=== PATIENT | female | born 1975 | race Caucasian/White ===

== ENCOUNTER 2022-09-10 15:32 | Outpatient (CLI) | payer BC, SELFPAY ==
--- NOTE | 2022-09-10 15:40 | CRLHL7_ITS ---
For Patients: As a result of the Century Cures Act, medical imaging exams and procedure reports are released immediately into your electronic medical record. You may view this report before your referring provider. If you have questions, please contact your health care provider. BILATERAL SCREENING MAMMOGRAM WITH COMPUTER-AIDED DETECTION AND TOMOSYNTHESIS TECHNIQUE: CC and MLO views were obtained. These mammographic images have been obtained using full-field digital technique. These mammographic images were interpreted with the benefit of computer-aided detection. Breast Tomosynthesis was used in this interpretation. COMPARISON FILM: 08/28/21, 07/23/20, 05/03/19. FINDINGS: The breasts are heterogeneously dense, which may obscure small masses IMPRESSION: There is no radiographic evidence for malignancy. ASSESSMENT: BI-RADS Category 1: Negative RECOMMENDATION: Routine screening mammogram in 1 year. A lay language report of this examination will be provided to the patient. Antoine Peraza M.D. Diagnostic Radiologist [email or web address] JUSTINA/Dictated by: Antoine Peraza MD @ 09/11/2022 11:04:00 AM (Electronically Signed)
== END 2022-09-10 15:33 | disposition home or self-care (01) ==
LOC: MAMMO 15:33
PROVIDERS: PCP Family Medicine; Visit Provider Family Medicine
DX: Z12.31 Encounter for screening mammogram for malignant neoplasm of breast (principal); R92.2 Inconclusive mammogram
CPT/HCPCS: 77063; 77067

== ENCOUNTER 2023-05-06 09:09 | Outpatient (CLI) | payer BC, SELFPAY | END 2023-05-06 09:10 | disposition home or self-care (01) | LOC: NFLDREF 05-08 12:26 | PROVIDERS: PCP Family Medicine; Referring Provider Family Medicine; Visit Provider Family Medicine | DX: Z00.00 Encounter for general adult medical examination without abnormal findings (principal); E78.00 Pure hypercholesterolemia, unspecified; I10 Essential (primary) hypertension | CPT/HCPCS: 80053; 80061 ==

== ENCOUNTER 2023-09-20 15:17 | Outpatient (CLI) | payer BC, SELFPAY ==
--- NOTE | 2023-09-20 15:20 | CRLHL7_ITS ---
For Patients: As a result of the Century Cures Act, medical imaging exams and procedure reports are released immediately into your electronic medical record. You may view this report before your referring provider. If you have questions, please contact your health care provider. BILATERAL SCREENING MAMMOGRAM WITH COMPUTER-AIDED DETECTION AND TOMOSYNTHESIS TECHNIQUE: CC and MLO views were obtained. These mammographic images have been obtained using full-field digital technique. These mammographic images were interpreted with the benefit of computer-aided detection. Breast Tomosynthesis was used in this interpretation. COMPARISON FILM: 09/10/22, 08/28/21, 07/23/20. FINDINGS: The breasts are heterogeneously dense, which may obscure small masses IMPRESSION: There is no radiographic evidence for malignancy. ASSESSMENT: BI-RADS Category 1: Negative RECOMMENDATION: Routine screening mammogram in 1 year. A lay language report of this examination will be provided to the patient. Darryl Stoll M.D. Diagnostic/Nuclear Medicine Radiologist [email or web address] JUSTINA/Dictated by: Darryl Stoll MD @ 09/21/2023 9:09:00 AM (Electronically Signed)
--- OUTSIDE RECORDS SUMMARY | 2023-09-20 15:21 | XMS_ITS | Continuity of Care Document ---
Author Name Unknown Organization [facility] Address [address] [place] [address] [address] Insurance Providers Payer Plan Claims Address Claims Phone Policy Number Group Number Relation Employer Guarantor Name Guarantor Guarantor Address Guarantor Phone [employer] [address], [place] [address] 81 [phone] Self Minerva Rich 1975 [id number] [place], [place] [id number] [employer] BL[employer] CROSS [address], [place] [address] 81 [phone] Self Minerva Rich 1975 [id number] [place], [place] [id number] [place] [id number] 1 Self Minerva Rich 1975 [id number] [place], [place] [id number] Problems Condition ICD9 code ICD10 code SNOMED code Start Date End Date S tatus Encounter for screening mammogram for malignant neoplasm of breast Z12.31 Admitting Results No Results Allergies, adverse reactions, alerts No known allergies and adverse reactions Medications No administered medications reported Vital Signs No vital signs reported Social History No smoking Hx information available
--- OUTSIDE RECORDS SUMMARY | 2023-09-20 15:21 | XMS_ITS | Clinical Summary ---
Author Name Unknown Organization [facility] Address [place], [place] [address] Care Team Providers Care Visual Effects Artist Name Role Phone Gianni Castañeda MD Primary Care Provider [phone] Allergies Active Allergy Reactions Criticality Noted Date Comments Prednisone Rash Medium 07/03/2018 Medications Medication Sig Dispensed Refills Start Date End Date Status buPROPion (WELLBUTRIN XL) 150 mg Extended-Release tablet Take 150 mg by mouth once daily. 1 10/21/2018 Active busPIRone (BUSPAR) 10 mg tablet Take 10 mg by mouth 3 times daily. 0 04/17/2019 Active hydroCHLOROthiazide 12.5 mg capsule Take 12.5 mg by mouth once daily. 0 05/10/2019 Active topiramate (TOPAMAX) 25 mg tablet 0 11/14/2019 Active rizatriptan (MAXALT) 5 mg tablet 0 09/08/2019 Active propranolol ER (INDERAL LA) 80 mg Cs24 Sustained-Release capsule 0 12/11/2019 Active acetaminophen-caffeine- butalbital (FIORICET) 325-40-50 mg tablet 0 11/11/2019 Activ e Family History Medical History Relation Name Comments Heart Disease Father Hyperlipidemia Father Hypertension Father Stroke Maternal Grandmother Thyroid Disease Sister 2 Psychiatric illness Sister 3 Relation Name Status Comments Brother Alive Father Alive Maternal Grandfather Maternal Grandmother Mother Alive Other Alive great grandmoth er on dad's side Paternal Grandfather Paternal Grandmother Alive Sister 1 Alive Sister 2 Sister 3 Social History Tobacco Use Types Packs/Day Years Used Date Smoking Tobacco: Never Smokeless Tobacco: Never Alcohol Use Standard Drinks/Week Comments Yes 0 (1 standard drink = 0.6 oz pur e alcohol) Social Connections Answer Date Recorded Frequency of Communication with Friends and Fami ly Not on file 11/28/2021 Sex and Gender Information Value Date Recorded Sex Assigned at Not on file Gender Identity Not on file Sexual Orientation Not on file Obstetrics History Para Term AB IAB SAB Ectopic Multiple Livin g Live Births 4 2 2 2 2 Date Outcome GA Total Labor Labor/2nd/3rd Weight Sex Delivery Anes PTL Vivian A1 A5 Name Cl in Term Term 10/15 40w 0d 36h 00m/ 3.49 kg (7 lb 11 oz) M Jacinda ng 10/23 39w 0d 4.22 kg (9 lb 5 oz) F Jacinda ng Last Filed Vital Signs Vital Sign Reading Time Taken Comments Blood Pressure 121/81 11/28/2021 2:42 PM CDT Pulse 73 11/28/2021 2:42 PM CDT Temperature 36.1 ??C (97 ??F) 12/23/2019 5:05 PM CDT Respiratory Rate 14 11/28/2021 2:42 PM CDT Oxygen Saturation 98% 12/23/2019 5:05 PM CDT Inhaled Oxygen Concentration - - Weight 103.9 kg (229 lb) 11/28/2021 2:42 PM CDT Height 157.5 cm (5' 2) 12/23/2019 5:05 PM CDT Body Mass Index 41.88 12/23/2019 5:05 PM CDT Plan of Treatment Health Maintenance Due Date Last Done Comments Tdap 12/17/1986 Depression screening for age 12+ 1987 HIV for age 15-65 12/17/1990 BMI (ht and wt on same day) for age 18+ 12/17/1993 Hepatitis C screening for age 18-79 12/17/1993 Tetanus booster 1995 Colonoscopy through age 75 12/17/2020 Lipids for age 45-75 12/17/2020 Mammogram for age 45-75 12/17/2020 COVID-19 vaccine series (2022- season) 2023 07/30/2021, 12/28/2020, 12/07/2020 Influenza for age 9-49 05/14/2023 Pap test for age 21-65 11/27/2024 2, 11/27/2021, 01/07/2018, Additional history exists Pneumococcal series for age 6-64 Aged Out No longer eligible based on patient's age to complete this topic Care Teams Visual Effects Artist Relationship Specialty Start Date End Date Gianni Castañeda MD [address] [place] [address] PCP - General Family Practice 12/23/19
== END 2023-09-20 15:18 | disposition home or self-care (01) ==
LOC: MAMMO 15:19
PROVIDERS: PCP Family Medicine; Visit Provider Family Medicine
DX: Z12.31 Encounter for screening mammogram for malignant neoplasm of breast (principal); R92.2 Inconclusive mammogram
CPT/HCPCS: 77063; 77067

== ENCOUNTER 2024-05-01 08:04 | Outpatient (CLI) | payer BC, SELFPAY ==
--- OUTSIDE RECORDS SUMMARY | 2024-05-02 08:34 | XMS_ITS | Encounter Summary ---
Author Organization [employer] Address [address], [place] [address] Care Team Providers Care Tire Shop Manager Name Role Phone Darryl Alberto MD Primary Care Provider [phone] Reason for Visit * Reason Comments QUESTIONS, GENERAL Entered automaticall y based on patient selection in [email or web address]. Encounter Details Date Type Department Care Team (Late st Contact Info) Description 04/22/2024 10:25 AM CDT E-Visit [facility] [address] [place] [address] Leeanna Haney, ESTUARDO, PUBLIC HEALTH REGISTRAR [address] [place] [address] Chief Comp: QUESTIONS, GENERAL Social History Tobacco Use Types Packs/Day Years Used Date Smoking Tobacco: Never Sex and Gender Information Value Date Recorded Sex Assigned at Not on file Gender Identity Not on file Sexual Orientation Not on file documented as of this encounter Nursing Notes * Colette Tsai RN - 04/28/2024 1:01 PM CDT Attempted to call pt regarding pain and injection order. No answer. Left message for patient to call back. Call Center: Please route encounter back to triage pool * Colette Tsai RN - 04/26/2024 10:44 AM CDT Images from the original note were not included. Leeanna Haney APRN, PUBLIC HEALTH REGISTRAR You (10:19 AM) Ok to repeat same injection if same pain pattern. You Leeanna Haney APRN, CNP2 days ago Okay for repeat injection? Left message for patient to call back. Also sent message to [employer] requesting patient return call. Call Center: Please route encounter back to triage pool documented in this encounter Plan of Treatment Not on file documented as of this encounter Visit Diagnoses Not on filedocumented in this encounter Care Teams Tire Shop Manager Relationship Specialty Start Date End Date Darryl Alberto MD [address] [place] [address] PCP - General 12/14/10 documented as of this encounter
--- OUTSIDE RECORDS SUMMARY | 2024-05-02 08:34 | XMS_ITS | Encounter Summary ---
Author Organization [employer] Address [address] [address] Care Team Providers Care Gaming Pit Boss Name Role Phone Darryl Alberto MD Primary Care Provider [phone] Reason for Referral * Procedure/Equipment (Routine) - Pending Review Specialty Diagnoses / Procedures Referred By Contac t Referred To Contact Diagnoses Lumbar radiculopathy Lumbar pain DDD (degenerative disc disease), lumbar (HRC) Scoliosis of lumbar spine, unspecified scoliosis type Lumbar foraminal stenosis Procedures FL Spinal Injection For Pain Management Leeanna May APRN, CNP [address] [place] [address] Referral ID Status Reason Start Date Expiration Date V isits Requested Visits Authorized [id number] Pending Review 04/26/2024 07/26/2025 1 1 Reason for Visit * Reason Comments Phone Call From Patient Encounter Details Date Type Department Care Team (Late st Contact Info) Description 04/26/2024 Refill [facility] [place] [facility] [address] [place] [address] Leeanna May APRN, CNP [address] [place] [address] Phone Call From Patient Social History Tobacco Use Types Packs/Day Years Used Date Smoking Tobacco: Never Sex and Gender Information Value Date Recorded Sex Assigned at Not on file Gender Identity Not on file Sexual Orientation Not on file documented as of this encounter Progress Notes * Leeanna May APRN, CNP - 04/28/2024 2:40 PM CDTAddended by: LEEANNA MAY on: 04/28/2024 02:40 PM Modules accepted: Orders * Colette Leary RN - 04/28/2024 2:09 PM CDTAddended by: COLETTE LEARY on: 04/28/2024 02:09 PM Modules accepted: Orders documented in this encounter Nursing Notes * Colette Leary RN - 04/28/2024 3:31 PM CDT Pt called and notified RX requests signed per provider. No further questions or concerns at this time. * Colette Leary RN - 04/28/2024 1:50 PM CDT Action: Input needed and New order Next Step: Review associated dx/order for accuracy and sign pended orders, if appropriate. and Caller IS expecting a call back from care team. Specific Request(s): 1. Pt requesting refill of cyclobenzaprine. Order pended. 2. Pt requesting refill of diclofenac. Order pended. Spoke w/ pt regarding injection. No further questions regarding scheduling, however has questions regarding refill request. Pt states she has had good relief with diclofenac and cyclobenzaprine prn and is requesting a refill of these medications. Diclofenac was originally prescribed by [facility] provider. Sales Representative Cash Registers informed would send message to provider regarding request. Pt verbalized understanding and agreement with plan. * Hyun Avila - 04/28/2024 1:09 PM CDT Pt. Missed a call from the care team today. No message was left why would like to speak with care team. * Jennifer Mccracken - 04/26/2024 1:18 PM CDT Spoke with the pt and she confirms that her pain is the same type/location as before. She would like to have another injection. Orders were entered and she will be called to schedule. She is aware that it might take up to 10 days for the PA process, before it's scheduled. She was given the injection coordinator/scheduling number to call if it is longer. She agrees to f/u with Leeanna 2-3 wks post injection. * Chanel Cespedes - 04/26/2024 10:53 AM CDT Patient states she received a call from [facility] ortho today. There are no notes. documented in this encounter Plan of Treatment Scheduled Orders Name Type Priority Associated Diagnoses Orde r Schedule FL Spinal Injection For Pain Management Imaging New Routine Lumbar radiculopathy Lumbar pain DDD (degenerative disc disease), lumbar (HRC) Scoliosis of lumbar spine, unspecified scoliosis type Lumbar foraminal stenosis Expected: 04/26/2024 (Approximate), Expires: 04/26/2025 documented as of this encounter Visit Diagnoses Diagnosis Lumbar radiculopathy- Primary Thoracic or lumbosacral neuritis or radiculitis, unspecified Lumbar pain Lumbago DDD (degenerative disc disease), lumbar (HRC) Degeneration of lumbar or lumbosacral intervertebral disc Scoliosis of lumbar spine, unspecified scoliosis type Lumbar foraminal stenosis Spinal stenosis, lumbar region, without neurogenic claudication documented in this encounter Care Teams Gaming Pit Boss Relationship Specialty Start Date End Date Darryl Alberto MD [address] [place] [address] PCP - General 12/14/10 documented as of this encounter
--- OUTSIDE RECORDS SUMMARY | 2024-05-02 08:34 | XMS_ITS | Continuity of Care Document ---
Author Organization [address], [place] [address] Insurance Providers Payer Plan Claims Address Claims Phone Policy Number Group Number Relation Employer Guarantor Name Guarantor Guarantor Address Guarantor Phone [employer] BL[employer] CROSS [address], [place] [address] 81 [phone] Self Minerva Rich 1975 [id number] [place], [place] [id number] [employer] CROSS [address], [place] [address] 81 81 Self Minerva Rich 1975 [id number] [place], [place] [id number] [place] [address] [place] 220G [id number] 1 Self Minerva Rich 1975 [address] [place], [place] [id number] Problems Condition ICD9 code ICD10 code SNOMED code Start Date End Date S tatus Encounter for screening mammogram for malignant neoplasm of breast Z12.31 Admitting Encounter for screening mammogram for malignant neoplasm of breast Z12.31 Final Insomnia, unspecified G47.00 Fi nal Obesity, unspecified E66.9 Fin al Depression, unspecified F32.A Final Essential (primary) hypertension I10 Final Other mcfp (current) drug therapy Z79.899 Fi nal Encounter for general adult medical examination without abnormal findings Z00.00 Final Other local company intermodal truck driver (current) drug therapy Z79.899 Fi nal Essential (primary) hypertension I10 Final Encounter for general adult medical examination without abnormal findings Z00.00 Final Pure hypercholesterolemia, unspecified E78.00 Final Other mcfp (current) drug therapy Z79.899 Ad mitting Essential (primary) hypertension I10 Admitting Encounter for general adult medical examination without abnormal findings Z00.00 Admitti ng Pure hypercholesterolemia, unspecified E78.00 Admitting Results No Results Allergies, adverse reactions, alerts No known allergies and adverse reactions Medications No administered medications reported Vital Signs No vital signs reported Social History No smoking Hx information available
--- OUTSIDE RECORDS SUMMARY | 2024-05-02 08:34 | XMS_ITS | Clinical Summary ---
Author Organization [facility] Address [address], [place] [address] Care Team Providers Care Supervisor Grain And Yeast Plants Name Role Phone Darryl Alberto MD Primary Care Provider [phone] Source Comments You are receiving this document as you are listed as the primary care provider,follow-up provider, or the patient has been referred to you for consultation.This is in compliance with the Medicare andThe [facility] EHR Incentive Program,which states Providers who transition their patient to another setting of careor provider of care or refers their patient to another provider of care shouldprovide summary care record for each transition of care or referral. [facility] Allergies Active Allergy Reactions Criticality Noted Date Comments Prednisone Respiratory Distress High 09/23/2023 Medications Medication Sig Dispensed Refills Start Date End Date Status ibuprofen (AKA MOTRIN) 600 MG tablet Take 1 Tablet (600 mg) by mouth three times a day as needed (Take 1 tablet by mouth 3 times daily as needed.). 09/22/2007 Active ALPRAZolam (XANAX) 0.25 MG tablet Take 1 Tablet (0.25 mg) by mouth three times a day as needed. Active buPROPion (WELLBUTRIN XL) 150 MG 24 hour release tablet Take 1 Tablet (150 mg) by mouth every morning. 10/26/2023 Active buPROPion (WELLBUTRIN XL) 300 MG 24 hour release tablet Take 1 Tablet (300 mg) by mouth daily. 12/02/2021 Active busPIRone (BUSPAR) 30 MG tablet Take 0.5 Tablets (15 mg) by mouth two times a day. Active NIKUNJ 50-325-40 MG tablet Take 1 Tablet by mouth every 6 hours as needed. 08/12/2023 Active Phentermine HCl (ADIPEX-P) 37.5 MG tablet Take 1 Tablet (37.5 mg) by mouth every morning. 09/14/2023 Active propranolol (INDERALLA) 80 MG 24 hour release capsule Take 1 Capsule (80 mg) by mouth daily. 08/06/2023 Active hydroCHLOROthiazi de (ORETIC) 12.5 MG tablet Take 1 Tablet (12.5 mg) by mouth daily. Active celecoxib (CELEBREX) 200 MG capsule Take 1 Capsule (200 mg) by mouth two times a day. 60 Capsule 12/03/2023 Active cyclobenzaprine (FLEXERIL) 10 MG tablet Take 1 Tablet (10 mg) by mouth at bedtime as needed for Muscle Spasms. 30 Tablet 04/28/2024 Active diclofenac (VOLTAREN) 50 MG enteric coated tablet Take 1 Tablet (50 mg) by mouth two times a day. 60 Tablet 04/28/2024 Active cyclobenzaprine (FLEXERIL) 10 MG tablet Take 1 Tablet (10 mg) by mouth at bedtime as needed for Muscle Spasms. 30 Tablet 12/03/2023 04/28/2024 Discontinued (*Med change OR same med OR reorder, new dose/directi ons) Active Problems Problem Noted Date Diagnosed Date Routine follow-up 12/07/2005 Overview (05/05/2017): LW Onset: ; Exam Contraceptive management 12/07/2005 Overview (05/05/2017): LW Onset: [id number] ; Contraceptive Management NOS Resolved Problems Problem Noted Date Diagnosed Date Resolved Date Routine general medical exam ination at a health care facility 09/29/2004 04/18/2005 Overview (05/05/2017): LW Onset: ; Health Maintenance Encounters Date Type Department Care Team Description 04/26/2024 Refill [facility] [address] [place] [phone] Leeanna Haney, EXTENSION SPECIALIST, STEAMBLASTER Phone Call From Patient 04/22/2024 10:25 AM CDT [facility] [address] [place] [address] Leeanna Haney, EXTENSION SPECIALIST, STEAMBLASTER Chief Comp: QUESTIONS, GENERAL from Last 3 Months Immunizations Name Administration Dates Next Due Flu Vac Preserv Free (3+yrs) 07/09/2005 TDAP (ADACEL) 03/18/2007 Td 09/02/1999 Social History Tobacco Use Types Packs/Day Years Used Date Smoking Tobacco: Never Sex and Gender Information Value Date Recorded Sex Assigned at Not on file Gender Identity Not on file Sexual Orientation Not on file Last Filed Vital Signs Vital Sign Reading Time Taken Comments Blood Pressure 113/87 12/20/2023 7:43 AM CDT Pulse 72 12/20/2023 7:43 AM CDT Temperature 36.4 ??C (97.6 ??F) 09/23/2023 3:24 PM CS T Respiratory Rate 16 12/20/2023 7:43 AM CDT Oxygen Saturation - - Inhaled Oxygen Concentration - - Weight 97 kg (213 lb 12.8 oz) 09/23/2023 3:24 PM MANAGEMENT RETAIL INTERN Height 160 cm (5' 3) 09/23/2023 3:24 PM MANAGEMENT RETAIL INTERN Body Mass Index 37.87 09/23/2023 3:24 PM MANAGEMENT RETAIL INTERN Plan of Treatment Health Maintenance Due Date Last Done Comments Colon Cancer Screening Plan Due 1975 Hep C Screening (Preventive Services) 1975 Mammogram 1975 Adult Preventive Visit 12/17/1993 HepB (1) 12/17/1994 Cervical Cancer Screening Due 12/08/2005 12/07/2005, 10/15/2004, 03/22/2002, Additional history exists Diabetes Screening- (based on age and BMI) 03/18/2010 03/18/2007 Cholesterol 12/17/2020 03/18/2007, 10/07/2004 COVID-19 Vaccine ( season) 2023 06/12/2022, 07/30/2021, 12/28/2020, Additional history exists Influenza (#1) 2024 09/26/2023, 05/16, 07/01/2021, Additional history exists Zoster/Shingles (1 of 2) 12/17/2025 DTaP/Tdap/Td (5 - Tdap) 11/22/2031 11/22/19, 04/20/2012, 04/03/2007, Additional history exists HIV Screening (Preventive Services) Completed 03/24/2005, 03/22/2002 HepA Aged Out 11/23/2012, 04/20/2012 No lo nger eligible based on patient's age to complete this topic Hib Aged Out No longer eligi ble based on patient's age to complete this topic IPV (Polio) Aged Out No longer eligi ble based on patient's age to complete this topic MCV4 Aged Out No longer eligi ble based on patient's age to complete this topic Pneumococcal Aged Out No longer eligi ble based on patient's age to complete this topic Procedures Procedure Name Priority Date/Time Associated Diagnosis Comments HGB A1C Routine 03/18/2007 10:30 AM CDT LIPID PANEL & DIRECT LDL (IF NEEDED) Routine 03/18/2007 10:30 AM CDT ANATOMICAL PATH LIQUID BASED Routine 12/07/2005 6:55 AM MANAGEMENT RETAIL INTERN HIV ANTIBODY Routine 03/24/2005 3:11 PM CDT from Last 3 Months or Most Recently Relevant to Health Maintenance Results * (ABNORMAL) Lipid Panel and Direct LDL(If Needed) (03/18/2007 10:30 AM CDT) Hours Fasting 12.0 Hours HP CONVERSION Cholesterol/HDL Ratio Screen 5.5 No normal range HP CONVERSION Cholesterol 171 <200 mg/dL HP CONVERSION HDL Cholesterol 31(L) 40 - 60 mg/dL HP CONVERSION Triglycerides 277(H) 0 - 149 mg/dL HP CONVERSION LDL Calculated 85 0 - 130 mg/dL HP CONVERSION Comment: 03/18/2007 10:3 0 AM CDT Darryl Alberto MD LAB_1 HP CONVERSION * Hgb A1c (03/18/2007 10:30 AM CDT) [facility] HGB A1C 5.0 <6.0 % HP CONVERSION 03/18/2007 10:3 0 AM CDT Darryl Alberto MD LAB_1 Performing Organization Address [facility]/ZIP Co de Phone Number HP CONVERSION * Pap Smear (12/07/2005 6:55 AM MANAGEMENT RETAIL INTERN) [facility] PAP Smear Liquid Based SEE TEXT No normal range HP CONVERSION Comment: Patient: MINERVA BOLANOS ? CERVICAL CYTOLOGY REPORT Pathology # ??[id number] ?Date Obtained: ? Date Received: CYTOLOGIC IMPRESSION: Negative for intraepithelial lesion or malignancy. ? ADDITIONAL DATA LMP: ?01-22-05 CLINICAL HIST ? PP 6 WKS LIQUID BASED PAP CERVICAL SPECIMEN ADEQUACY: ?? Satisfactory. ENDOCERVICAL CELLS: ??Absent. Verified 12/09/05 by: ??KGM ?(electronic signature) 12/07/2005 6:55 AM MANAGEMENT RETAIL INTERN Marcus Lopes MD LAB_1 Performing Organization Address [facility]/ZIP Co de Phone Number HP CONVERSION * HIV Antibody (03/24/2005 3:11 PM CDT) HIV 1/HIV 2 Non Reac Non Reac HP CONVERSION 03/24/2005 3:11 PM CDT Lisa Worley APRN, [facility] LAB_1 HP CONVERSION from Last 3 Months or Most Recently Relevant to Health Maintenance Care Teams Supervisor Grain And Yeast Plants Relationship Specialty Start Date End Date Darryl Alberto MD [address] [place] [address] PCP - General 12/14/10
--- OUTSIDE RECORDS SUMMARY | 2024-05-02 08:34 | XMS_ITS | Clinical Summary ---
Author Organization [facility] Address [place], [place] [address] Care Team Providers Care Inventory Control Assistant Name Role Phone Gianni Castañeda MD Primary Care Provider [phone] Allergies Active Allergy Reactions Criticality Noted Date [...] 05/10/2019 Active topiramate (TOPAMAX) 25 mg tablet 11/14/2019 Active rizatriptan (MAXALT) 5 mg tablet 09/08/2019 Active propranolol ER (INDERAL LA) 80 mg Cs24 Sustained-Release capsule 12/11/2019 Active acetaminophen-caffeine- butalbital (FIORICET) 325-40-50 mg tablet 11/11/2019 Activ e Family History Medical History [...] Outcome GA Total Labor Labor/2nd/3rd Weight Sex Type Anes PTL Vivian A1 A5 Name Clin Term Term 2002 40w 0d 36h 00m/ 3.49 kg (7 lb 11 oz) M C-Sec tion Living 2005 39w 0d 4.22 kg (9 lb 5 oz) F C-Sec tion Living Last Filed Vital Signs Vital Sign Reading [...] 07/30/2021, 12/28/2020, 12/07/2020 Influenza for age 9-49 05/14/2024 Pap test for age 21-65 11/27/2024 2, 11/27/2021, 01/07/2018, Additional history exists Pneumococcal series for age 6-64 Aged Out No longer eligible based on patient's age to complete this topic Procedures Procedure Name Priority Date/Time Associated Diagnosis Comments HPV THIN PREP Routine 11/27/2021 1:30 PM CDT from Last 3 Months or Most Recently Relevant to Health Maintenance Results * HPV HIGH RISK (11/27/2021 1:30 PM CDT) TYPE 16 Negative Negative 12/02/2021 2:52 PM CDT [facility] TYPE 18 Negative Negative 12/02/2021 2:52 PM CDT [facility] OTHER HIGH RISK TYPES Negative Negative 12/02/2021 2:52 PM CDT [facility] Other (Cervical/Vagina l) 11/27/2021 1:30 PM CDT 12/01/2021 7:53 AM CDT Narrative [facility] - 12/02/2021 2:52 PM CDT HPV types 16, 18, 31, 33, 35, 39, 45, 51, 52, 56, 58, 59, 66 and 68 DNA were undetectable or below the pre-set threshold. Methodology: Amelia Gely 4800 HPV Test December Pedro [facility] [employer] [facility] [address] [place] [address], from Last 3 Months or Most Recently Relevant to Health Maintenance Care Teams Inventory Control Assistant Relationship Specialty Start Date End Date Gianni Castañeda MD [address] [place] [address] PCP - General Family Practice 12/23/19
== END 2024-05-01 08:05 | disposition home or self-care (01) ==
LOC: NFLDREF 05-02 08:30
PROVIDERS: PCP Family Medicine; Referring Provider Family Medicine; Visit Provider Family Medicine
DX: Z00.00 Encounter for general adult medical examination without abnormal findings (principal); I10 Essential (primary) hypertension; E78.00 Pure hypercholesterolemia, unspecified; Z79.899 Other long term (current) drug therapy
CPT/HCPCS: 80053; 80061

== ENCOUNTER 2024-06-05 15:41 | Outpatient (CLI) | payer BC, SELFPAY ==
--- OUTSIDE RECORDS SUMMARY | 2024-06-06 22:13 | XMS_ITS | Clinical Summary ---
Author Organization [employer] Address [address], [place] [address] Care Team Providers Care Table And Desk Finisher Name Role Phone Darryl Alberto MD Primary Care Provider [phone] Source Comments You are receiving this document as you are listed as the primary care provider,follow-up provider, or the patient has been referred to you for consultation.This is in compliance with the Medicare and[facility] EHR Incentive Program,which states Providers who transition their patient to another setting of careor provider of care or refers their patient to another provider of care shouldprovide summary care record for each transition of care or referral. [employer] Allergies Active Allergy Reactions Criticality Noted Date [...] Tablet (12.5 mg) by mouth daily. Active cyclobenzaprine (FLEXERIL) 10 MG tablet Take 1 Tablet (10 mg) by mouth at bedtime as needed for Muscle Spasms. 30 Tablet 04/28/2024 Active diclofenac (VOLTAREN) 50 MG enteric coated tablet Take 1 Tablet (50 mg) by mouth two times a day. 60 Tablet 04/28/2024 Active celecoxib (CELEBREX) 200 MG capsule Take 1 Capsule (200 mg) by mouth two times a day. 60 Capsule 12/03/2023 05/17/2024 Discontinued Active Problems Problem Noted Date Diagnosed Date Routine follow-up 12/07/2005 Overview (05/05/2017): LW Onset: ; Exam Contraceptive management 12/07/2005 Overview (05/05/2017): LW Onset: [id number] ; Contraceptive Management NOS Resolved Problems Problem Noted Date Diagnosed Date Resolved Date Routine general medical exam ination at a health care facility 09/29/2004 04/18/2005 Overview (05/05/2017): LW Onset: ; Health Maintenance Encounters Date Type Department Care Team Description 06/02/2024 kasandra Palacios [phone] 06/02/2024 kasandra Palacios [phone] 05/17/2024 1:00 PM CDT Treatment [facility] [address] [place] [address] Leeanna Haney, RETAIL LINK ANALYST, TRANSITION NURSE Huan, Mikala R, DO Lumbar radiculopathy; Lumbar pain; DDD (degenerative disc disease), lumbar (HRC); Scoliosis of lumbar spine, unspecified scoliosis type; Lumbar foraminal stenosis 05/04/2024 Telephone [id number] PM[facility] Injections [address] [place] [address] Mikala Pressley, DO Injection 04/26/2024 Refill [facility] [address] [place] [phone] Leeanna Haney APRN, TRANSITION NURSE Phone Call From Patient 04/22/2024 10:25 AM CDT E-Visit [facility] [address] [place] [phone] Leeanna Haney APRN, TRANSITION NURSE Chief Comp: QUESTIONS, GENERAL from Last 3 [...] Sign Reading Time Taken Comments Blood Pressure 137/91 05/17/2024 12:51 PM CDT Pulse 65 05/17/2024 12:51 PM CDT Temperature 36.4 ??C (97.6 ??F) 09/23/2023 3:24 PM CS T Respiratory Rate 16 12/20/2023 7:43 AM CDT Oxygen Saturation - - Inhaled Oxygen Concentration - - Weight 97 kg (213 lb 12.8 oz) 09/23/2023 3:24 PM TOOL AND DIE REPAIR Height 160 cm (5' 3) 09/23/2023 3:24 PM TOOL AND DIE REPAIR Body Mass Index 37.87 09/23/2023 3:24 PM TOOL AND DIE REPAIR Plan of Treatment Upcoming Encounters Date Type Department Care Team (Late st Contact Info) Description 06/07/2024 3:25 PM CDT Phone Visit [facility] [address] [place] [phone] Leeanna Haney APRN, TRANSITION NURSE [address] [place] [address] Health Maintenance Due Date Last Done Comments Colon Cancer Screening Plan Due 1975 Hep C Screening (Preventive Services) 1975 Mammogram 1975 Adult Preventive Visit 12/17/1993 HepB (1) 12/17/1994 Cervical Cancer Screening Due 12/08/2005 12/07/2005, 10/15/2004, 03/22/2002, Additional history exists Diabetes Screening- (based on age and BMI) 03/18/2010 03/18/2007 Cholesterol 12/17/2020 03/18/2007, 10/07/2004 COVID-19 Vaccine ( season) 2024 06/12/2022, 07/30/2021, 12/28/2020, Additional history exists Influenza [...] Procedure Name Priority Date/Time Associated Diagnosis Comments FL SPINAL INJECTION FOR PAIN MANAGEMENT Routine 05/17/2024 1:17 PM CDT Lumbar radiculopathy Lumbar pain DDD (degenerative disc disease), lumbar (HRC) Scoliosis of lumbar spine, unspecified scoliosis type Lumbar foraminal stenosis HGB A1C Routine 03/18/2007 10:30 AM CDT LIPID PANEL & DIRECT LDL (IF NEEDED) Routine 03/18/2007 10:30 AM CDT ANATOMICAL PATH LIQUID BASED Routine 12/07/2005 6:55 AM TOOL AND DIE REPAIR HIV ANTIBODY Routine 03/24/2005 3:11 PM CDT from Last 3 Months or Most Recently Relevant to Health Maintenance Results * FL Spinal Injection For Pain Management (05/17/2024 1:17 PM CDT) Anatomical Region Laterality Modality Spine, L-Spine, T-Spine, C-Spine Radiographic Imaging Narrative 05/17/2024 1:20 PM CDT These images were obtained during a surgical procedure. Leeanna Haney APRN, TRANSITION NURSE RAD FL * (ABNORMAL) Lipid Panel and Direct LDL(If [...] * Hgb A1c (03/18/2007 10:30 AM CDT) HGB A1C 5.0 <6.0 % HP CONVERSION 03/18/2007 10:3 0 AM CDT Darryl Alberto MD LAB_1 HP CONVERSION * Pap Smear (12/07/2005 6:55 AM TOOL AND DIE REPAIR) Pathologist [facility] PAP Smear Liquid Based SEE TEXT No normal range HP CONVERSION Comment: Patient: MINERVA BOLANOS ? CERVICAL CYTOLOGY REPORT Pathology # ??[id number] ?Date Obtained: ? Date Received: CYTOLOGIC IMPRESSION: Negative for intraepithelial lesion or malignancy. ? ADDITIONAL DATA LMP: ?01-22-05 CLINICAL HIST ? PP 6 WKS LIQUID BASED PAP CERVICAL SPECIMEN ADEQUACY: ?? Satisfactory. ENDOCERVICAL CELLS: ??Absent. Verified 12/09/05 by: ??KGM ?(electronic signature) 12/07/2005 6:55 AM TOOL AND DIE REPAIR Marcus Lopes MD LAB_1 Performing Organization Address [facility] de Phone Number HP CONVERSION * HIV Antibody (03/24/2005 3:11 PM CDT) Pathologist [facility] HIV 1/HIV 2 Non Reac Non Reac HP CONVERSION 03/24/2005 3:11 PM CDT Lisa Worley APRN, TRANSITION NURSE LAB_1 Performing Organization Address [facility] [address]/[facility] Co de Phone Number HP CONVERSION from Last 3 Months or Most Recently Relevant to Health Maintenance Care Teams Table And Desk Finisher Relationship Specialty Start Date End Date Darryl Alberto MD [address] [place] [phone] PCP - General 12/14/10
--- OUTSIDE RECORDS SUMMARY | 2024-06-06 22:14 | XMS_ITS | Encounter Summary ---
Author Organization [employer] Address [address] [address] Care Team Providers Care Ticket Broker Name Role Phone Darryl Alberto MD Primary Care Provider Reason for Referral * Procedure/Equipment (Routine) - Closed Specialty Diagnoses / Procedures Referred By Price staton Referred To Contact Diagnoses Lumbar radiculopathy Lumbar pain DDD (degenerative disc disease), lumbar (HRC) Scoliosis of lumbar spine, unspecified scoliosis type Lumbar foraminal stenosis Procedures FL Spinal Injection For Pain Management Leeanna May APRN, CNP [address] [place] [address] Referral ID Status Reason Start Date Expiration Date Visits Re quested Visits Authorized [id number] Closed 04/26/2024 07/26/2025 1 1 Reason for Visit * Reason Comments Phone Call From Patient Encounter Details Date Type Department Care Team (Late st Contact Info) Description 04/26/2024 Refill [facility] [place] [facility] [address] [facility] [place] [phone] Leeanna May APRN, CNP [address] [place] [address] Phone Call From Patient Social History [...] Diclofenac was originally prescribed by [facility] provider. Clinical Trial Specialist informed would send message to provider regarding [...] Patient states she received a call from [facility] today. There are no notes. documented in this encounter Plan of Treatment Upcoming Encounters Date Type Department Care Team (Late st Contact Info) Description 06/07/2024 3:25 PM CDT Phone Visit [facility] [place] [facility] [address] [place] [phone] Leeanna May, NUCLEAR EQUIPMENT SALES ENGINEER, ENVIRONMENTAL RESEARCH SCIENTIST [address] [facility] [place] [address] documented as of this encounter Results * FL Spinal Injection For Pain Management (05/17/2024 1:17 PM CDT) Anatomical Region Laterality Modality Spine, L-Spine, T-Spine, C-Spine Radiographic Imaging Narrative 05/17/2024 1:20 PM CDT These images were obtained during a surgical procedure. Leeanna May APRN, LUCA RAD AR documented in this encounter Visit Diagnoses Diagnosis Lumbar radiculopathy- Primary Thoracic or lumbosacral neuritis or radiculitis, unspecified Lumbar pain Lumbago DDD (degenerative disc disease), lumbar (HRC) Degeneration of lumbar or lumbosacral intervertebral disc Scoliosis of lumbar spine, unspecified scoliosis type Lumbar foraminal stenosis Spinal stenosis, lumbar region, without neurogenic claudication Lumbar radiculopathy Thoracic or lumbosacral neuritis or radiculitis, unspecified Lumbar pain Lumbago DDD (degenerative disc disease), lumbar (HRC) Degeneration of lumbar or lumbosacral intervertebral disc Scoliosis of lumbar spine, unspecified scoliosis type Lumbar foraminal stenosis Spinal stenosis, lumbar region, without neurogenic claudication documented in this encounter Care Teams Ticket Broker Relationship Specialty Start Date End Date Darryl Alberto MD [address] [place] [address] PCP - General 12/14/10 documented as of this encounter
--- OUTSIDE RECORDS SUMMARY | 2024-06-06 22:14 | XMS_ITS | Encounter Summary ---
Author Organization [employer] Address [address] [address] Care Team Providers Care Litigator Name Role Phone Darryl Alberto MD Primary Care Provider [phone] Reason for Visit * Reason Comments QUESTIONS, GENERAL Entered automaticall y based [facility] Encounter Details Date Type Department Care Team (Late st Contact Info) Description 04/22/2024 10:25 AM CDT E-Visit [facility] [address] [place] [address] Leeanna Haney, LEAD SYSTEMS ARCHITECT, TILE BURNER [address] [place] [address] Chief Comp: QUESTIONS, GENERAL Social [...] note were not included. Leeanna Haney APRN, LUCA You (10:19 AM) Ok to repeat same injection if same pain pattern. You Leeanna Haney APRN, CNP2 days ago Okay for repeat injection? Left message for patient to call back. Also sent message to [facility] requesting patient return call. Call Center: Please route encounter back to triage pool documented in this encounter Plan of Treatment Upcoming Encounters Date Type Department Care Team (Late st Contact Info) Description 06/07/2024 3:25 PM CDT Phone Visit [facility] [address] [place] [address] Leeanna Haney APRN, LUCA [address] [place] [address] documented as of this encounter Visit Diagnoses Not on filedocumented in this encounter Care Teams Litigator Relationship Specialty Start Date End Date Darryl Alberto MD [address] [place] [phone] PCP - General 12/14/10 documented as of this encounter
--- OUTSIDE RECORDS SUMMARY | 2024-06-06 22:14 | XMS_ITS | Continuity of Care Document ---
Author Organization [address] [address] Insurance Providers Payer Plan Claims Address Claims Phone Policy Number Group Number Relation Employer Guarantor Name Guarantor Guarantor Address Guarantor Phone [employer] [address], [place] [address] 81 [phone] Self Minerva Rich 1975 [id number] [place], [place] [id number] [employer] [address], [place] [address] 81 [phone] Self Minerva Rich 1975 [address] [place], [place] [id number] [employer] [place] 220[place] [id number] 1 Self Minerva Rich 1975 [id number] [place], [place] [id number] Problems Condition ICD9 code ICD10 code SNOMED code Start Date End Date S tatus Encounter for screening mammogram for malignant neoplasm of breast Z12.31 Admitting Encounter for screening mammogram for malignant neoplasm of breast Z12.31 Final Insomnia, unspecified G47.00 Fi nal Obesity, unspecified E66.9 Fin al Depression, unspecified F32.A Final Essential (primary) hypertension I10 Final Other jail (current) drug therapy Z79.899 Fi nal Encounter for general adult medical examination without abnormal findings Z00.00 Final Other jail (current) drug therapy Z79.899 Fi nal Essential (primary) hypertension I10 Final Encounter for general adult medical examination without abnormal findings Z00.00 Final Pure hypercholesterolemia, unspecified E78.00 Final Other jail (current) drug therapy Z79.899 Ad mitting Essential (primary) hypertension I10 Admitting Encounter for general adult medical examination without abnormal findings Z00.00 Admitti ng Pure hypercholesterolemia, unspecified E78.00 Admitting Migraine, unspecified, not intractable, without status migrainosus G43.909 Final Obesity, unspecified E66.9 Fin al Essential (primary) hypertension I10 Final Insomnia, unspecified G47.00 Fi nal Hypokalemia E87.6 Final Hypokalemia E87.6 Results No Results Allergies, adverse reactions, alerts No known allergies and adverse reactions Medications No administered medications reported Vital Signs No vital signs reported Social History No smoking Hx information available
--- OUTSIDE RECORDS SUMMARY | 2024-06-06 22:14 | XMS_ITS | Encounter Summary ---
Author Organization [employer] Address [address], [place] [address] Care Team Providers Care Certified Appliance Service Technician Name Role Phone Darryl Alberto MD Primary Care Provider [phone] Reason for Visit * Reason Comments Injection * Procedure/Equipment (Routine) - Closed Specialty Diagnoses / Procedures Referred By Price t Referred To Contact Diagnoses Lumbar radiculopathy Lumbar pain DDD (degenerative disc disease), lumbar (HRC) Scoliosis of lumbar spine, unspecified scoliosis type Lumbar foraminal stenosis Procedures [place] Spinal Injection For Pain Management Leeanna Haney APRN, SILO MAN [address] [place] [address] Referral ID Status Reason Start Date Expiration Date Visits Re quested Visits Authorized [id number] Closed 04/26/2024 07/26/2025 1 1 Encounter Details Date Type Department Care Team (Late st Contact Info) Description 05/17/2024 1:00 PM CDT Treatment [facility] [address] [place] [address] Leeanna Haney APRN, SILO MAN [address] [place] [address] iMkala Pressley DO [address] [place] [address] Lumbar radiculopathy; Lumbar pain; DDD (degenerative disc disease), lumbar (HRC); Scoliosis of lumbar spine, unspecified scoliosis type; Lumbar foraminal stenosis Social History Tobacco Use Types Packs/Day Years Used Date Smoking Tobacco: Never Sex and Gender Information Value Date Recorded Sex Assigned at Not on file Gender Identity Not on file Sexual Orientation Not on file documented as of this encounter Last Filed Vital Signs Vital Sign Reading Time Taken Comments Blood Pressure 137/91 05/17/2024 12:51 PM CDT Pulse 65 05/17/2024 12:51 PM CDT Temperature - - Respiratory Rate - - Oxygen Saturation - - Inhaled Oxygen Concentration - - Weight - - Height - - Body Mass Index - - documented in this encounter Progress Notes * Mikala Pressley DO - 05/17/2024 1:00 PM CDT Patient name: Minerva Rich Procedure Date: 05/17/2024 Referred by: Leeanna Haney, LINE ERECTOR, SILO MAN [address] [place] [address] Pre Operative Diagnosis: Left Lumbar Radiculopathy/Radicular Pain; Lumbar Spinal Stenosis without myelopathy; Lumbar spondylosis Post Operative Diagnosis: Left Lumbar Radiculopathy/Radicular Pain; Lumbar Spinal Stenosis without myelopathy; Lumbar spondylosis Name of Procedure: Left L1-L2 transforaminal epidural steroid injection Performed by: Mikala Pressley DO Description of Procedure: The patient denies fevers, chills, night sweats, or weight loss. The patient does not take prescription blood thinners or antibiotics for an active infection. We reviewed the risks, alternatives, benefits, and potential complications of an epidural steroid injection which include but are not limited to bleeding, bruising, infection, allergic reaction, increased pain, headache, lack of pain relief, or nerve, spinal cord, and blood vessel injury. 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 After verbal and written informed consent, the patient was taken to the procedure suite and placed in a prone position. A preprocedural pause was performed identifying appropriate patient, site, side, and nature of procedure. The left L1-L2 foramen was identified fluoroscopically with an ipsilateral oblique fluoroscopic view. A target was marked on the patient's skin, prepped with ChloraPrep solution times two, and draped in sterile fashion. Aseptic technique was used throughout the procedure. The skin and soft tissues overlying the area were anesthetized with 1% lidocaine. Afterwards, a 25-gauge, 3.5-inch spinal needle was advanced into the left L1-L2 foramen under intermittent fluoroscopic guidance. Appropriate placement was confirmed with a lateral fluoroscopic view which demonstrated placement of the needle tip superior to the suspected location of the L1 nerve root. After negative aspiration of blood and CSF, a total of 1 mL of iodinated contrast was injected. This demonstrated an appropriate L1 neurogram with epidural spread and an absence of intrathecal or vascular spread. A mixture of 10 mg of dexamethasone and 2 mL of 1% lidocaine were slowly injected. The needle was flushed with a small amount of 1% lidocaine and removed intact. A bandage was applied and the patient was taken to the recovery room where she was observed for 10-20 minutes and discharged in good condition. Overall, no complications were noted. 3 mL of OMNI 300 was drawn. 1 mL was used and 2 mL was wasted. 10 mg of dexamethasone was used. 10 mg was used and 0 mg was wasted. Mikala Pressley DO 05/17/2024, 1:16 PM Pain Management Physical Medicine and Rehabilitation documented in this encounter Nursing Notes * Esther Hand RN - 05/17/2024 1:00 PM CDT Pt has been holding the Ibuprofen and Diclofenac for the past 5 days. * Esther Hand RN - 05/17/2024 1:00 PM CDT Patient was monitored for 10 minutes post injection. Patient had no signs or symptoms of adverse reaction to injection. Patient was given oral and written discharge instructions and verbalized understanding. Patient ambulated to front lobby to meet sprinkler truck driver. documented in this encounter Plan of Treatment Upcoming Encounters Date Type Department Care Team (Late st Contact Info) Description 06/07/2024 3:25 PM CDT Phone Visit [facility] [place] [facility] [address] [place] [address] Leeanna Haney APRN, SILO MAN [address] [facility] [place] [address] documented as of this encounter Procedures Procedure Name Priority Date/Time Associated Diagnosis Comments FL SPINAL INJECTION FOR PAIN MANAGEMENT Routine 05/17/2024 1:17 PM CDT Lumbar radiculopathy Lumbar pain DDD (degenerative disc disease), lumbar (HRC) Scoliosis of lumbar spine, unspecified scoliosis type Lumbar foraminal stenosis documented in this encounter Results * FL Spinal Injection For Pain Management (05/17/2024 1:17 PM CDT) Anatomical Region Laterality Modality Spine, L-Spine, T-Spine, C-Spine Radiographic Imaging Narrative 05/17/2024 1:20 PM CDT These images were obtained during a surgical procedure. Leeanna Haney APRN, SILO MAN RAD FL documented in this encounter Visit Diagnoses Diagnosis Lumbar radiculopathy Thoracic or lumbosacral neuritis or radiculitis, unspecified Lumbar pain Lumbago DDD (degenerative disc disease), lumbar (HRC) Degeneration of lumbar or lumbosacral intervertebral disc Scoliosis of lumbar spine, unspecified scoliosis type Lumbar foraminal stenosis Spinal stenosis, lumbar region, without neurogenic claudication documented in this encounter Care Teams Certified Appliance Service Technician Relationship Specialty Start Date End Date Darryl Alberto MD [address] [place] [phone] PCP - General 12/14/10 documented as of this encounter
--- OUTSIDE RECORDS SUMMARY | 2024-06-06 22:14 | XMS_ITS | Clinical Summary ---
Author Organization [facility] Address [place], [place] [address] Care Team Providers Care Forest Fire Management Officer Name Role Phone Gianni Castañeda MD Primary Care Provider [phone] Allergies Active Allergy Reactions Criticality Noted Date [...] 45-75 12/17/2020 COVID-19 vaccine series (2022- season) 2024 07/30/2021, 12/28/2020, 12/07/2020 Influenza for age 9-49 05/14/2024 Pap test for age 21-65 11/27/2024 , 11/27/2021, 01/07/2018, Additional history exists Pneumococcal series for age 6-64 Aged Out No longer eligible based on patient's age to complete this topic Procedures Procedure Name Priority Date/Time Associated Diagnosis Comments HPV HIGH RISK Routine 11/27/2021 1:30 PM CDT from Last 3 Months or Most Recently Relevant to Health Maintenance Results * HPV HIGH RISK (11/27/2021 1:30 PM CDT) TYPE 16 Negative Negative 12/02/2021 2:52 PM CDT [facility] TYPE 18 Negative Negative 12/02/2021 2:52 PM CDT [facility] OTHER HIGH RISK TYPES Negative Negative 12/02/2021 2:52 PM CDT [facility] Other (Cervical/Vagina l) 11/27/2021 1:30 PM CDT 12/01/2021 7:53 AM CDT Narrative [facility] - 12/02/2021 2:52 PM CDT HPV types 16, 18, 31, 33, 35, 39, 45, 51, 52, 56, 58, 59, 66 and 68 DNA were undetectable or below the pre-set threshold. Methodology: Amelia Gely 4800 HPV Test December Pedro [facility] [address] [place] [address], from Last 3 Months or Most Recently Relevant to Health Maintenance Care Teams Forest Fire Management Officer Relationship Specialty Start Date End Date Gianni Castañeda MD [address] [place] [address] PCP - General Family Practice 12/23/19
--- OUTSIDE RECORDS SUMMARY | 2024-06-06 22:14 | XMS_ITS | Encounter Summary ---
Author Organization [facility] Address [address], [place] [address] Care Team Providers Care Chimney Builder Helper Name Role Phone Darryl Alberto MD Primary Care Provider Encounter Details Date Type Department Care Team (Late st Contact Info) Description 06/02/2024 [facility] [phone] Social History Tobacco Use Types Packs/Day Years Used Date Smoking Tobacco: Never Sex and Gender Information Value Date Recorded Sex Assigned at Not on file Gender Identity Not on file Sexual Orientation Not on file documented as of this encounter Plan of Treatment Upcoming Encounters Date Type Department Care Team (Late st Contact Info) Description 06/07/2024 3:25 PM CDT Phone Visit [facility] [address] [place] [address] Leeanna Haney, CNC OPERATOR MACHINIST, CAMP HOUSEKEEPER [address] [place] [address] documented as of this encounter Visit Diagnoses Diagnosis Acute sinusitis, unspecified documented in this encounter Care Teams Chimney Builder Helper Relationship Specialty Start Date End Date Darryl Alberto MD [address] [place] [address] PCP - General 12/14/10 documented as of this encounter
--- OUTSIDE RECORDS SUMMARY | 2024-06-06 22:14 | XMS_ITS | Encounter Summary ---
Author Organization [facility] Address [address] [place] [address] Care Team Providers Care Delivery Specialist Name Role Phone Darryl Alberto MD Primary Care Provider [phone] Encounter Details Date Type Department Care Team (Late st Contact Info) Description 06/02/2024 [facility] [phone] Social History Tobacco Use Types Packs/Day Years Used Date Smoking Tobacco: Never Sex and Gender Information Value Date Recorded Sex Assigned at Not on file Gender Identity Not on file Sexual Orientation Not on file documented as of this encounter Progress Notes * FAMILY MEDICINEGERARD PROVIDER - 06/02/2024 7:28 AM CDT [facility] Treatment Plan Diagnosis Sinusitis Worsened by Allergies Visit Date June 02, 2024 Minerva Rich Date of : 75 Provider Fátima Nam, Nurse Practitioner Note From Provider Dar Palma, Thank you for using [facility]. I?? sorry to hear that you are not feeling well. I??e sent a prescription for an antibiotic and a nasal spray (antihistamine) to your pharmacy. Tohelp relieve your symptoms while your antibiotics start to work, I recommend taking 800 mg of ibuprofen every 8 hours around the clock for the next 3 days. Use the prescribed Azelastine nasal spray--2 sprays each nostril am and pm. I also recommend taking over the counter Mucinex--plain (Guaifenesin) as directed and drinking extra fluids to promote drainage. Please read through the treatment planI??e put together for you below for additional instructions. If you have any questions or concerns,please submit a Follow Up Request at any time. Feel better soon! FLA[facility] Treatment Plan Since you have a bacterial infection, let?? try high dose amoxicillin, a recommended antibiotic to get you better faster. I??e prescribed a nasal spray to reduce congestion and ease the pain and stuffiness caused by this infection and your allergies. It?? important to continue the nasal spray for at least 1 month for the best results. I sent your prescriptions to [facility]. I??e also listedsome important, additional self-care tips to soothe your symptoms. If your symptoms don?? improve after 4 days, or if you have questions, select Help to Request a Follow-up and we??l adjust your treatment for free. Order(s) amoxicillin 500 mg capsule Take 2 capsule by mouth three times a day as directed for 7 days Note: $patientNotes Refills: None azelastine 137 mcg (0.1 %) spray,non-aerosol [place] 1-2 spray into both nostrils twice a day as directed Note: $patientNotes Refills: 11 Sent To: [facility] [address] [id number] Treatment Plan Self Care Tip Topics Your Sinus Infection and Allergies: A Two-part Plan Let?? Talk Allergies Ibuprofen to Reduce Inflammation Reduce Congestion with Nasal Antihistamines Drink Plenty of Water to Thin Mucus Itchy Eye Relief Ear Pain Relief Yeast Infection Next Steps What to Expect Our two-part plan will help you feel better quickly and reduce the likelihood of future sinus infections. First, we??l treat your infection with a short term plan to get rid of the bug, reduce sinus inflammation and promote drainage. We??l also get you started on a longer term allergy plan, much like an community outreach manager would, to treat chronic nasal congestion and help prevent future sinus infections. If you follow the recommendations I made in the Treatment section, your symptoms should begin to improve within 4 days of following this treatment plan. If your symptoms haven?? improved after 4 days, select Help to Request a Follow-up and we??l discuss next steps. What to Watch Out For Give us a call immediately if you experience: ??? Vision changes ??? Redness and swelling of the eyes or face ??? Increasing congestion ??? Worsening pain ??? High fevers My Conditions, Orders, Allergies as of June 02, 2024 Standard condition list Anxiety Depression High Blood Pressure (Hypertension) Current orders azelastine (azelastine) amoxicillin (amoxicillin) Auvelity (dextromethorphan-bupropion) Wellbutrin XL (bupropion HCl) propranolol (propranolol) buspirone (buspirone) Allergies prednisone (prednisone), oral [employer] Information [facility] We are an online clinic open 05/04. If you have any questions or comments about this visit, please call or email [email or web address]. documented in this encounter Plan of Treatment Upcoming Encounters Date Type Department Care Team (Late st Contact Info) Description 06/07/2024 3:25 PM CDT Phone Visit [facility] [address] [place] [address] Leeanna Haney, SERICULTURIST, HOSPICE COORDINATOR [address] [place] [address] documented as of this encounter Visit Diagnoses Not on filedocumented in this encounter Care Teams Delivery Specialist Relationship Specialty Start Date End Date Darryl Alberto MD [address] [place] [phone] PCP - General 12/14/10 documented as of this encounter
--- OUTSIDE RECORDS SUMMARY | 2024-06-06 22:14 | XMS_ITS | Encounter Summary ---
Author Organization [facility] Address [address] [address] Care Team Providers Care Thermometer Maker Name Role Phone Darryl Alberto MD Primary Care Provider [phone] Reason for Visit * Reason Comments Injection Encounter Details Date Type Department Care Team (Late st Contact Info) Description 05/04/2024 Telephone [id number] [facility] Injections [address] [place] [address] Mikala Pressley, DO [address] [place] [address] Injection Social History Tobacco Use Types Packs/Day Years Used Date Smoking Tobacco: Never Sex and Gender Information Value Date Recorded Sex Assigned at Not on file Gender Identity Not on file Sexual Orientation Not on file documented as of this encounter Nursing Notes * Donita Young, RN - 05/04/2024 1:39 PM CDT Updated patient patient to hold IBU 24 hour prior to injection. No further questions or concerns atthis time. * Fredo Peres - 05/04/2024 12:35 PM CDT Patient is scheduled for an injection and is currently taking Ibu [email or web address] Please call patient to discuss whether they need to discontinue prioir to injection appt. documented in this encounter Plan of Treatment Upcoming Encounters Date Type Department Care Team (Late st Contact Info) Description 06/07/2024 3:25 PM CDT Phone Visit [facility] [address] [place] [address] Leeanna Haney, COOKIE BREAKER, DRESSMAKER GARMENT FITTER [address] [place] [address] documented as of this encounter Visit Diagnoses Not on filedocumented in this encounter Care Teams Thermometer Maker Relationship Specialty Start Date End Date Darryl Alberto MD [address] [place] [phone] PCP - General 12/14/10 documented as of this encounter
== END 2024-06-05 15:42 | disposition home or self-care (01) ==
LOC: NFLDREF 06-06 22:12
PROVIDERS: PCP Family Medicine; Referring Provider Family Medicine; Visit Provider Family Medicine
DX: E87.6 Hypokalemia (principal)
CPT/HCPCS: 84132

== ENCOUNTER 2024-10-19 14:30 | Outpatient (CLI) | payer BC, SELFPAY ==
--- NOTE | 2024-10-19 14:40 | CRLHL7_ITS ---
For Patients: As a result of the Century Cures Act, medical imaging exams and procedure reports are released immediately into your electronic medical record. You may view this report before your referring provider. If you have questions, please contact your health care provider. BILATERAL SCREENING MAMMOGRAM WITH COMPUTER-AIDED DETECTION AND TOMOSYNTHESIS TECHNIQUE: CC and MLO views were obtained. These mammographic images have been obtained using full-field digital technique. These mammographic images were interpreted with the benefit of computer-aided detection. Breast Tomosynthesis was used in this interpretation. COMPARISON FILM: 09/20/23, 09/10/22, 08/28/21. FINDINGS: The breasts are heterogeneously dense, which may obscure small masses. IMPRESSION: There is no radiographic evidence for malignancy. ASSESSMENT: BI-RADS Category 1: Negative RECOMMENDATION: Routine screening mammogram in 1 year. A lay language report of this examination will be provided to the patient. Antoine Peraza M.D. Diagnostic Radiologist [email or web address] SP/Dictated by: Antoine Peraza MD @ 10/20/2024 10:35:00 AM (Electronically Signed)
== END 2024-10-19 14:31 | disposition home or self-care (01) ==
PROVIDERS: PCP Family Medicine; Visit Provider Family Medicine
DX: Z12.31 Encounter for screening mammogram for malignant neoplasm of breast (principal); R92.333 Mammographic heterogeneous density, bilateral breasts
CPT/HCPCS: 77063; 77067

== ENCOUNTER 2025-04-10 08:44 | Outpatient (CLI) | payer BC, SELFPAY | END 2025-04-10 08:45 | disposition home or self-care (01) | LOC: NFLDREF 04-12 14:20 | PROVIDERS: PCP Family Medicine; Referring Provider Family Medicine; Visit Provider Family Medicine | DX: E78.00 Pure hypercholesterolemia, unspecified (principal); G43.909 Migraine, unspecified, not intractable, without status migrainosus; Z79.899 Other long term (current) drug therapy; Z01.818 Encounter for other preprocedural examination | CPT/HCPCS: 80053; 80061 ==